=== PATIENT | male | born 1955 | race Caucasian/White ===

== ENCOUNTER 2018-02-18 17:11 | Inpatient (IN) | payer MEDICAID, OTHER ==
[~2018-02-18] VITALS: Ht 167.6 cm; Wt 72.9 kg
[2018-02-18] MEDS ORDERED: SODIUM CHLORIDE 0.9% 500 ML IVB ONE (17:22)
[2018-02-18] MEDS ORDERED: MORPHINE SULFATE 4 MG/ML SYR/VIAL IV ONE (17:30)
[2018-02-18] MEDS ORDERED: ONDANSETRON HCL 4 MG/2 ML VIAL IV ONE (17:30)
[2018-02-18 18:19] LABS: Basophils # (auto) 0.1 uL; Basophils % (auto) 0.5 % (0.0-2.0); Eosinophils # (auto) 0.1 uL; Eosinophils % (auto) 0.5 % (0.0-7.0); Hematocrit 45.5 % (41.0-53.0); Hemoglobin 15.6 g/dL (13.5-17.5); Lymphocytes # (auto) 1.6 uL; Lymphocytes % (auto) 10.4 % (10.0-50.0); Mean Corpuscular Hemoglobin 31.2 pg (28.0-32.0); Mean Corpuscular Hgb Conc. 34.4 g/dL (32.0-36.0); Mean Corpuscular Volume 90.9 fL (80.0-100.0); Monocytes # (auto) 1.2 uL; Monocytes % (auto) 8.2 % (0.0-12.0); Neutrophils # (auto) 12.2 uL; Neutrophils % (auto) 80.4 % (37.0-80.0); Nucleated Red Blood Cells % 0.3 %; Platelet Count (auto) 155 10^3/uL (140-450); Red Blood Cells 5.01 10^6/uL (4.5-5.90); Red Cell Distribution Width 13.8 % (11.8-14.3); White Blood Cell 15.1 10^3/uL (4.4-10.8)
[2018-02-18 18:29] LABS: Albumin 3.6 g/dL (3.4-5.0); Calcium 9.2 mg/dL (8.5-10.1)
[2018-02-18] MEDS ORDERED: cefTRIAXone 1GM/10ml IVPUSH 10 ML IV ONE (18:30)
[2018-02-18 18:31] LABS: Bilirubin, Total 2.4 mg/dL (0.2-1.0); Total Protein 7.9 g/dL (6.4-8.2)
[2018-02-18] MEDS ORDERED: metroNIDAZOLE 500MG/100ML 100 ML IV ONE (19:30)
[2018-02-18 19:38] LABS: INR 1.02 (0.9-1.15); Partial Thromboplastin Time 32.1 sec (23.78-33.04); Prothrombin Time 10.9 sec (9.27-12.13)
[2018-02-18] MEDS ORDERED: MORPHINE SULF INJ 2 MG/ML SYRINGE 1ML IV PRN (19:45)
[2018-02-18] MEDS: SODIUM CHLORIDE 0.9% 1,000 ML IV SCH (21:21)
[2018-02-18] MEDS ORDERED: LIDOCAINE 1% (LOCAL ANESTH.) PF 5ml SDV ONE (22:45)
[2018-02-18] MEDS ORDERED: BUPIVACAINE 0.25% INJ 50ML VIAL ONE (22:45)
[2018-02-18] MEDS ORDERED: HYDROmorphone HCL 2 MG/ML VL ONE (22:53)
[2018-02-18] MEDS: ONDANSETRON HCL 4 MG/2 ML VIAL IV PRN (22:59)
[2018-02-18 23:05] VITALS: BP 105/65
[2018-02-18] MEDS: metroNIDAZOLE 500MG/100ML 100 ML IV SCH (23:47)
[2018-02-19] MEDS: HYDROmorphone HCL 2 MG/ML VL IV PRN ×4 (02:06→19:40)
[2018-02-19] MEDS: SODIUM CHLORIDE 0.9% 1,000 ML IV SCH ×3 (03:51→21:34)
[2018-02-19] MEDS ORDERED: OMEP20TA PO (04:32)
[2018-02-19 05:30] VITALS: BP 99/60
[2018-02-19] MEDS: metroNIDAZOLE 500MG/100ML 100 ML IV SCH ×3 (05:35→18:06)
[2018-02-19 05:58] LABS: Basophils # (auto) 0.1 uL; Basophils % (auto) 0.5 % (0.0-2.0); Eosinophils # (auto) 0.1 uL; Eosinophils % (auto) 0.5 % (0.0-7.0); Hematocrit 42.9 % (41.0-53.0); Hemoglobin 14.7 g/dL (13.5-17.5); Lymphocytes # (auto) 1.4 uL; Lymphocytes % (auto) 10.4 % (10.0-50.0); Mean Corpuscular Hemoglobin 31.3 pg (28.0-32.0); Mean Corpuscular Hgb Conc. 34.2 g/dL (32.0-36.0); Mean Corpuscular Volume 91.5 fL (80.0-100.0); Monocytes # (auto) 1.1 uL; Monocytes % (auto) 8.1 % (0.0-12.0); Neutrophils # (auto) 11.1 uL; Neutrophils % (auto) 80.5 % (37.0-80.0); Platelet Count (auto) 134 10^3/uL (140-450); Red Blood Cells 4.68 10^6/uL (4.5-5.90); Red Cell Distribution Width 13.9 % (11.8-14.3); White Blood Cell 13.7 10^3/uL (4.4-10.8)
[2018-02-19 06:10] LABS: Urine Bacteria NONE SEEN /hpf (None Seen); Urine Blood Negative /uL (Negative); Urine Mucus FEW (None Seen); Urine Specific Gravity 1.029 (1.001-1.035); Urine WBC 1 /hpf (0 - 3)
[2018-02-19 06:51] LABS: Albumin 3.4 g/dL (3.4-5.0); BUN/Creatinine Ratio 13.6; Bilirubin, Total 2.2 mg/dL (0.2-1.0); Calcium 8.6 mg/dL (8.5-10.1); Potassium 4.1 mmol/L (3.5-5.1); Total Protein 7.3 g/dL (6.4-8.2)
[2018-02-19] MEDS ORDERED: ceFAZolin 1GM/50ML 50 ML IV ONE (06:52)
[2018-02-19] MEDS ORDERED: PHENYLEPHRINE HCL 10 MG/ML VL IV ONE (07:18)
[2018-02-19] MEDS ORDERED: GLYCOPYRROLATE 0.2 MG/ML 1ML VIAL IV ONE (07:18)
[2018-02-19] MEDS ORDERED: NEOSTIGMINE 1 MG/ML INJ (10mg/10ML VIAL) IV ONE (07:18)
[2018-02-19] MEDS ORDERED: SUCCINYLCHOLINE CHLORIDE 20 MG/ML 10ML VIAL IV ONE (07:28)
[2018-02-19] MEDS ORDERED: MEPERIDINE HCL (50 MG/ML) 1 ML VIAL ONE (07:31)
[2018-02-19] MEDS ORDERED: MIDAZOLAM HCL 1MG/1ML-2 ML VIAL ONE (07:31)
[2018-02-19] MEDS ORDERED: fentaNYL CITRATE 100 MCG/2 ML VL ONE (07:31)
[2018-02-19] MEDS ORDERED: DEXAMETHASONE SOD PHOS 10MG/1ML VIAL INJ ONE (07:44)
[2018-02-19] MEDS ORDERED: PROPOFOL 10 MG/ML 20 ML IV ONE (07:44)
[2018-02-19] MEDS ORDERED: ROCURONIUM 10MG/ML 10ML VIAL IV ONE (07:46)
[2018-02-19] MEDS ORDERED: LABETALOL HCL 5 MG/ML 4ML SYRINGE IV PRN (09:00)
[2018-02-19] MEDS ORDERED: ePHEDrine SULFATE 50 MG/ML AMP IV PRN (09:00)
[2018-02-19] MEDS ORDERED: MORPHINE SULF INJ 2 MG/ML SYRINGE 1ML IV PRN (09:00)
[2018-02-19] MEDS ORDERED: HYDROmorphone HCL 2 MG/ML VL IV PRN (09:00)
[2018-02-19] MEDS ORDERED: METOCLOPRAMIDE HCL 5MG/ml INJ 2ml VIAL IV ONE (09:00)
[2018-02-19] MEDS ORDERED: MIDAZOLAM HCL 1MG/1ML-2 ML VIAL IV PRN (09:00)
[2018-02-19] MEDS ORDERED: ONDANSETRON HCL 4 MG/2 ML VIAL IV ONE (09:00)
[2018-02-19] MEDS ORDERED: KETOROLAC TROMETH 30 MG/ML 1ML VIAL IV ONE (09:00)
[2018-02-19] MEDS ORDERED: MORPHINE SULF INJ 2 MG/ML SYRINGE 1ML IV ONE (10:00)
[2018-02-19 12:42] VITALS: BP 111/72
[2018-02-19] MEDS: cefTRIAXone 1GM/10ml IVPUSH 10 ML IV SCH (12:46)
[2018-02-19 17:04] VITALS: BP 94/61
[2018-02-19 22:00] VITALS: BP 104/66
[2018-02-20] MEDS: HYDROmorphone HCL 2 MG/ML VL IV PRN ×5 (00:44→23:29)
[2018-02-20] MEDS: metroNIDAZOLE 500MG/100ML 100 ML IV SCH ×5 (00:44→23:28)
[2018-02-20 05:30] VITALS: BP 95/63
[2018-02-20] MEDS: SODIUM CHLORIDE 0.9% 1,000 ML IV SCH ×3 (05:40→21:31)
[2018-02-20 05:49] LABS: Basophils # (auto) 0 uL; Basophils % (auto) 0.2 % (0.0-2.0); Eosinophils # (auto) 0 uL; Eosinophils % (auto) 0.1 % (0.0-7.0); Hematocrit 37.7 % (41.0-53.0); Lymphocytes % (auto) 6.8 % (10.0-50.0); Mean Corpuscular Hemoglobin 31.3 pg (28.0-32.0); Mean Corpuscular Hgb Conc. 34.4 g/dL (32.0-36.0); Monocytes # (auto) 0.9 uL; Monocytes % (auto) 5.8 % (0.0-12.0); Neutrophils % (auto) 87.1 % (37.0-80.0); Platelet Count (auto) 132 10^3/uL (140-450); Red Blood Cells 4.14 10^6/uL (4.5-5.90); Red Cell Distribution Width 13.5 % (11.8-14.3); White Blood Cell 14.9 10^3/uL (4.4-10.8)
[2018-02-20 05:56] LABS: Albumin 2.8 g/dL (3.4-5.0); BUN/Creatinine Ratio 15.1; Calcium 8.3 mg/dL (8.5-10.1); Potassium 4.1 mmol/L (3.5-5.1)
[2018-02-20 05:59] LABS: Total Protein 6.7 g/dL (6.4-8.2)
[2018-02-20] MEDS: ONDANSETRON HCL 4 MG/2 ML VIAL IV PRN ×3 (08:25→18:30)
[2018-02-20 09:00] VITALS: BP 113/73
[2018-02-20] MEDS: cefTRIAXone 1GM/10ml IVPUSH 10 ML IV SCH (09:00)
[2018-02-20 13:00] VITALS: BP 138/76
[2018-02-20 17:00] VITALS: BP 95/58
[2018-02-20 20:00] VITALS: BP 105/72
[2018-02-21] MEDS: HYDROmorphone HCL 2 MG/ML VL IV PRN ×4 (03:56→21:47)
[2018-02-21 05:00] VITALS: BP 108/68
[2018-02-21] MEDS: metroNIDAZOLE 500MG/100ML 100 ML IV SCH ×3 (05:46→18:00)
[2018-02-21] MEDS: SODIUM CHLORIDE 0.9% 1,000 ML IV SCH ×3 (05:46→22:31)
[2018-02-21 06:32] LABS: Basophils # (auto) 0 uL; Basophils % (auto) 0.5 % (0.0-2.0); Eosinophils # (auto) 0.1 uL; Eosinophils % (auto) 2.1 % (0.0-7.0); Hematocrit 36.1 % (41.0-53.0); Hemoglobin 12.6 g/dL (13.5-17.5); Lymphocytes # (auto) 1.1 uL; Mean Corpuscular Hemoglobin 31.7 pg (28.0-32.0); Mean Corpuscular Volume 90.6 fL (80.0-100.0); Monocytes # (auto) 0.5 uL; Neutrophils # (auto) 4.5 uL; Neutrophils % (auto) 71.4 % (37.0-80.0); Platelet Count (auto) 127 10^3/uL (140-450); Red Blood Cells 3.98 10^6/uL (4.5-5.90); Red Cell Distribution Width 13.6 % (11.8-14.3); White Blood Cell 6.3 10^3/uL (4.4-10.8)
[2018-02-21 06:53] LABS: Albumin 2.6 g/dL (3.4-5.0); BUN/Creatinine Ratio 19.8; Bilirubin, Total 0.7 mg/dL (0.2-1.0); Calcium 7.4 mg/dL (8.5-10.1); Potassium 3.6 mmol/L (3.5-5.1); Total Protein 5.8 g/dL (6.4-8.2)
[2018-02-21 09:00] VITALS: BP 112/67
[2018-02-21] MEDS: cefTRIAXone 1GM/10ml IVPUSH 10 ML IV SCH (09:20)
[2018-02-21] MEDS: ONDANSETRON HCL 4 MG/2 ML VIAL IV PRN ×2 (09:21→17:11)
[2018-02-21 12:52] VITALS: BP 110/69
[2018-02-21 16:14] VITALS: BP 102/64
[2018-02-21 20:00] VITALS: BP 138/74
[2018-02-21 21:47] VITALS: BP 138/74
[2018-02-22] MEDS: metroNIDAZOLE 500MG/100ML 100 ML IV SCH ×5 (00:01→23:50)
[2018-02-22] MEDS: HYDROmorphone HCL 2 MG/ML VL IV PRN ×4 (04:55→21:16)
[2018-02-22 05:00] VITALS: BP 129/73
[2018-02-22 05:26] LABS: Basophils # (auto) 0.1 uL; Basophils % (auto) 0.9 % (0.0-2.0); Eosinophils # (auto) 0.2 uL; Eosinophils % (auto) 4.2 % (0.0-7.0); Hematocrit 37.3 % (41.0-53.0); Lymphocytes % (auto) 17.2 % (10.0-50.0); Mean Corpuscular Hemoglobin 31.6 pg (28.0-32.0); Mean Corpuscular Hgb Conc. 34.9 g/dL (32.0-36.0); Mean Corpuscular Volume 90.6 fL (80.0-100.0); Monocytes # (auto) 0.7 uL; Monocytes % (auto) 11.7 % (0.0-12.0); Neutrophils # (auto) 3.9 uL; Nucleated Red Blood Cells % 0.1 %; Platelet Count (auto) 143 10^3/uL (140-450); Red Blood Cells 4.12 10^6/uL (4.5-5.90); Red Cell Distribution Width 13.7 % (11.8-14.3); White Blood Cell 5.9 10^3/uL (4.4-10.8)
[2018-02-22 05:43] LABS: BUN/Creatinine Ratio 17.6; Calcium 7.4 mg/dL (8.5-10.1); Potassium 3.7 mmol/L (3.5-5.1)
[2018-02-22] MEDS: SODIUM CHLORIDE 0.9% 1,000 ML IV SCH ×3 (06:48→23:31)
[2018-02-22 09:00] VITALS: BP 116/72
[2018-02-22] MEDS: cefTRIAXone 1GM/10ml IVPUSH 10 ML IV SCH (09:54)
[2018-02-22 11:56] VITALS: BP 125/74
[2018-02-22] MEDS: ONDANSETRON HCL 4 MG/2 ML VIAL IV PRN (14:44)
[2018-02-22] MEDS ORDERED: PANTOPRAZOLE 40 MG TAB PO ONE (16:45)
[2018-02-22 16:55] VITALS: BP 136/74
[2018-02-22 22:00] VITALS: BP 133/69
[2018-02-23 05:08] VITALS: BP 132/70
[2018-02-23] MEDS: metroNIDAZOLE 500MG/100ML 100 ML IV SCH ×4 (05:38→23:39)
[2018-02-23 08:57] VITALS: BP 93/49
[2018-02-23] MEDS: PANTOPRAZOLE 40 MG TAB PO SCH (09:33)
[2018-02-23] MEDS: cefTRIAXone 1GM/10ml IVPUSH 10 ML IV SCH (09:33)
[2018-02-23] MEDS: HYDROmorphone HCL 2 MG/ML VL IV PRN ×3 (11:32→23:40)
[2018-02-23] MEDS: SODIUM CHLORIDE 0.9% 1,000 ML IV SCH ×2 (12:00→16:11)
[2018-02-23 17:00] VITALS: BP 138/82
[2018-02-23 22:00] VITALS: BP 136/74
[2018-02-23] MEDS: ONDANSETRON HCL 4 MG/2 ML VIAL IV PRN (23:55)
[2018-02-24] MEDS: SODIUM CHLORIDE 0.9% 1,000 ML IV SCH ×2 (00:31→08:51)
[2018-02-24 05:06] VITALS: BP 113/62
[2018-02-24] MEDS: metroNIDAZOLE 500MG/100ML 100 ML IV SCH ×2 (06:12→12:00)
[2018-02-24 06:19] LABS: Basophils # (auto) 0.1 uL; Basophils % (auto) 0.8 % (0.0-2.0); Eosinophils # (auto) 0.3 uL; Eosinophils % (auto) 4.9 % (0.0-7.0); Hematocrit 38.8 % (41.0-53.0); Hemoglobin 13.7 g/dL (13.5-17.5); Lymphocytes # (auto) 1.4 uL; Lymphocytes % (auto) 22.7 % (10.0-50.0); Mean Corpuscular Hemoglobin 31.4 pg (28.0-32.0); Mean Corpuscular Hgb Conc. 35.3 g/dL (32.0-36.0); Mean Corpuscular Volume 88.8 fL (80.0-100.0); Monocytes # (auto) 0.7 uL; Monocytes % (auto) 12.2 % (0.0-12.0); Neutrophils # (auto) 3.6 uL; Neutrophils % (auto) 59.4 % (37.0-80.0); Nucleated Red Blood Cells % 0.1 %; Platelet Count (auto) 165 10^3/uL (140-450); Red Blood Cells 4.37 10^6/uL (4.5-5.90); Red Cell Distribution Width 13.4 % (11.8-14.3)
[2018-02-24 06:35] LABS: Potassium 3.6 mmol/L (3.5-5.1)
[2018-02-24 06:52] LABS: Albumin 2.7 g/dL (3.4-5.0); BUN/Creatinine Ratio 12.5; Bilirubin, Total 0.7 mg/dL (0.2-1.0); Calcium 8.3 mg/dL (8.5-10.1)
[2018-02-24 08:26] VITALS: BP 124/85
[2018-02-24] MEDS: cefTRIAXone 1GM/10ml IVPUSH 10 ML IV SCH (09:51)
[2018-02-24] MEDS: PANTOPRAZOLE 40 MG TAB PO SCH (09:51)
[2018-02-24 12:32] VITALS: BP 128/72
[2018-02-24 15:32] VITALS: BP 128/72
[2018-02-24 16:38] VITALS: BP 126/71
== END 2018-02-24 16:45 | disposition home health service (06) | DRG 233 ==
LOC: EDBD 17:11 → ER 17:16 → OVERFLOW 17:17 → WEST WING 22:58
PROVIDERS: ADMIT Internal Medicine; ATTEND Internal Medicine
PROC: 0W9G30Z Drainage of Peritoneal Cavity with Drainage Device, Percutaneous Approach (ICD-10-PCS; 2018-02-19)
PROC: 0DTJ4ZZ Resection of Appendix, Percutaneous Endoscopic Approach (ICD-10-PCS; principal; 2018-02-19 07:18)
DX: K35.3 Acute appendicitis with localized peritonitis (principal); E44.0 Moderate protein-calorie malnutrition; F17.210 Nicotine dependence, cigarettes, uncomplicated; K21.9 Gastro-esophageal reflux disease without esophagitis; N18.9 Chronic kidney disease, unspecified; J98.11 Atelectasis; Z90.49 Acquired absence of other specified parts of digestive tract; Z83.79 Family history of other diseases of the digestive system; Z90.89 Acquired absence of other organs; E88.09 Other disorders of plasma-protein metabolism, not elsewhere classified
CPT/HCPCS: 36415; 71045; 74176; 80048; 80053; 81001; 82150; 83690; 85025; 85610; 85730; 86850; 86900; 86901; 87040; 93005; 94761; 96361; 96365; 96375; A6257; J0330; J0690; J0696; J1100; J2250; J2405; J2704; J3490

== ENCOUNTER 2024-02-23 00:39 | Emergency (ER) | payer OTHER, MEDICAID ==
[~2024-02-23] VITALS: Ht 167.6 cm; Wt 96.1 kg
[~2024-02-23 00:39] MED LIST: ACET-1079 PO; OMEP20TA PO
[2024-02-23 02:30] VITALS: BP 140/99; PULSE 90; RESP 16; TEMP 97.6; O2SAT 95
[2024-02-23] MEDS ORDERED: AMOX875T3 PO (02:35)
[2024-02-23] MEDS ORDERED: CIPR1SUS8 OT (02:35)
== END 2024-02-23 03:00 | disposition home or self-care (01) ==
LOC: ER 00:39
DX: H66.92 Otitis media, unspecified, left ear (principal); H60.92 Unspecified otitis externa, left ear; Z98.890 Other specified postprocedural states; Z79.899 Other long term (current) drug therapy